=== PATIENT | female | born 1995 | race Caucasian/White ===

== ENCOUNTER 2017-03-14 02:39 | Emergency (ER) | payer OTHER, BC ==
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
[2017-03-14 03:27] VITALS: BP 122/78; PULSE 76; TEMP 98; BMI 32.3
[2017-03-14 04:20] LABS: URINE APPEARANCE CLEAR; URINE BILIRUBIN NEGATIVE (NEGATIVE); URINE BLOOD NEGATIVE (NEGATIVE); URINE COLOR LTYELLOW; URINE GLUCOSE (UA) NEGATIVE (NEGATIVE); URINE KETONE NEGATIVE (NEGATIVE); URINE LEUK ESTERASE NEGATIVE (NEGATIVE); URINE NITRITE NEGATIVE (NEGATIVE); URINE PROTEIN NEGATIVE (NEGATIVE); URINE UROBILINOGEN NEGATIVE mg/dL (0.2-1.0)
== END 2017-03-14 06:04 | disposition home or self-care (01) ==
LOC: JER 02:39
PROC: 2W3KX1Z Immobilization of Left Finger using Splint (ICD-10-PCS; principal; 2017-03-14)
DX: S62.661D Nondisplaced fracture of distal phalanx of left index finger, subsequent encounter for fracture with routine healing (principal); Y92.488 Other paved roadways as the place of occurrence of the external cause; Z48.02 Encounter for removal of sutures; V49.49XD Driver injured in collision with other motor vehicles in traffic accident, subsequent encounter; S01.01XD Laceration without foreign body of scalp, subsequent encounter; S31.114D Laceration without foreign body of abdominal wall, left lower quadrant without penetration into peritoneal cavity, subsequent encounter
CPT/HCPCS: 36415; 73030-TC-LT; 73130-TC-LT; 81003; 84703; 87086; 87491; 87591; 99282-25

== ENCOUNTER 2021-10-06 23:51 | Emergency (ER) | payer OTHER ==
[2021-10-07 00:01] VITALS: BP 106/71; PULSE 77; RESP 20; TEMP 98.7; BMI 25.7
[2021-10-07] MEDS ORDERED: ACETAMINOPHEN 1000 MG/100 ML BAG IVPB ONE (00:16)
[2021-10-07] MEDS ORDERED: LACTATED RINGERS SOLUTION 1,000 ML IV STA (00:16)
[2021-10-07] MEDS ORDERED: ACETAMINOPHEN INJECTION 100 ML IVPB ONE (01:14)
[2021-10-07 01:26] LABS: BASO % 0.4 % (0-2.0); EOS % 0.4 % (0-4.5); HEMATOCRIT 36.3 % (32.4-45.2); HEMOGLOBIN 12.3 GM/dL (10.7-15.3); LYMPH % 19.8 % (8-40); MCHC 33.7 g/dl (32.0-36.0); MEAN PLT VOLUME 8.1 fl (7.5-11.1); NEUT % 72.4 % (42.8-82.8); PLATELET COUNT 250 10^3/uL (134-434); RBC 4.23 M/mm3 (3.60-5.2); RDW 13.6 % (11.6-15.6); WHITE BLOOD COUNT 10.8 K/mm3 (4.0-10.0)
[2021-10-07 01:42] LABS: ALBUMIN 2.9 g/dl (3.4-5.0); BLOOD UREA NITROGEN 5.4 mg/dL (7-18); CALCIUM 8.4 mg/dL (8.5-10.1)
[2021-10-07 01:45] LABS: CREATININE 0.5 mg/dL (0.55-1.3)
[2021-10-07 01:47] LABS: BILIRUBIN,TOTAL 0.3 mg/dL (0.2-1); TOT PROT 7.1 g/dl (6.4-8.2)
[2021-10-07 02:22] LABS: PH,URINE 6.5 (5.0-8.0); URINE APPEARANCE CLEAR; URINE BILIRUBIN NEGATIVE (NEGATIVE); URINE COLOR YELLOW; URINE GLUCOSE (UA) NEGATIVE (NEGATIVE); URINE KETONE NEGATIVE (NEGATIVE); URINE LEUK ESTERASE NEGATIVE (NEGATIVE); URINE NITRITE NEGATIVE (NEGATIVE); URINE PROTEIN NEGATIVE (NEGATIVE)
== END 2021-10-07 03:24 | disposition home or self-care (01) ==
LOC: JER 23:51
PROC: 3E0333Z Introduction of Anti-inflammatory into Peripheral Vein, Percutaneous Approach (ICD-10-PCS; principal; 2021-10-06)
DX: O26.892 Other specified pregnancy related conditions, second trimester (principal); R10.31 Right lower quadrant pain; Z3A.14 14 weeks gestation of pregnancy
CPT/HCPCS: 36415; 76801-TC; 80053; 81003; 83690; 83735; 84100; 84702; 85025; 86850; 86900; 86901; 87086; 93005; 93010; 99285-25

== ENCOUNTER 2022-03-03 21:25 | Inpatient (IN) | payer OTHER ==
[2022-03-03] MEDS ORDERED: AMPICILLIN - 2 GM in SODIUM CHLORIDE 100 ML IVPB ONE (22:42)
[2022-03-03] MEDS ORDERED: ELECTROLYTE-148 SOLN 1,000 ML IV SCH (22:45)
[2022-03-03 23:02] LABS: BASO % 0.2 % (0-2.0); EOS % 0.1 % (0-4.5); HEMATOCRIT 34.9 % (32.4-45.2); HEMOGLOBIN 11.8 GM/dL (10.7-15.3); LYMPH % 15.8 % (8-40); MCH 28.7 pg (25.7-33.7); MCHC 33.8 g/dl (32.0-36.0); MEAN CELL VOLUME 85.1 fl (80-96); MEAN PLT VOLUME 7.2 fl (7.5-11.1); MONO % 7.3 % (3.8-10.2); NEUT % 76.6 % (42.8-82.8); PLATELET COUNT 287 10^3/uL (134-434); RDW 13.3 % (11.6-15.6); WHITE BLOOD COUNT 13.2 K/mm3 (4.0-10.0)
[2022-03-03 23:09] LABS: INR 0.98 (0.83-1.09); PROTHROMBIN TIME (PATIENT) 11.3 SEC (9.7-13.0)
[2022-03-03 23:11] LABS: ACTIVATED PTT 24.5 SECONDS (25.2-36.5)
[2022-03-03 23:21] VITALS: BMI 28.7
[2022-03-03 23:21] LABS: CALCIUM 8.9 mg/dL (8.5-10.1)
[2022-03-03 23:22] LABS: ALBUMIN 2.6 g/dl (3.4-5.0); BLOOD UREA NITROGEN 5.2 mg/dL (7-18)
[2022-03-03 23:25] LABS: CREATININE 0.5 mg/dL (0.55-1.3)
[2022-03-03 23:26] LABS: TOT PROT 6.8 g/dl (6.4-8.2)
[2022-03-03] MEDS ORDERED: AMPICILLIN SODIUM 2 GM VIAL ONE (23:32)
[2022-03-03 23:45] LABS: BILIRUBIN,TOTAL 0.3 mg/dL (0.2-1)
[2022-03-03 23:47] LABS: SYPHILIS W/ RPR CONF NON-REACTIVE (NONREACTIVE)
[2022-03-03 23:48] LABS: HEPATITIS B SURFACE AG MATERN NON-REACTIVE (NONREACTIVE)
[2022-03-04] MEDS ORDERED: OXYTOCIN 30 UNITS in 0.9% NS 30 UNIT/500 ML INFUS.BAG IVPB SCH (00:15)
[2022-03-04 00:16] LABS: HIV INTERPRETATION NEGATIVE (NEGATIVE)
[2022-03-04 00:18] LABS: OPIATES, URI NEGATIVE (NEGATIVE); PHENCYCLIDINE,URINE NEGATIVE (NEGATIVE); URINE BENZODIAZEPINES NEGATIVE (NEGATIVE)
[2022-03-04] MEDS ORDERED: FENTANYL/BUPIVACAINE/NS/PF - PCEA - 50 ML DISP.SYRIN EP ONE (00:33)
[2022-03-04] MEDS ORDERED: BUPIVACAINE HCL/PF 0.25% (2.5MG/ML) 10 ML VIAL ONE ×2 (00:37→07:42)
[2022-03-04 00:40] LABS: COCAINE, UR NEGATIVE (NEGATIVE); METHADONE, UR NEGATIVE (NEGATIVE); URINE AMPHETAMINES NEGATIVE (NEGATIVE); URINE BARBITURATES NEGATIVE (NEGATIVE)
[2022-03-04 01:03] LABS: URINE COLOR YELLOW
[2022-03-04 01:04] LABS: URINE APPEARANCE CLEAR; URINE BILIRUBIN NEGATIVE (NEGATIVE); URINE GLUCOSE (UA) NEGATIVE (NEGATIVE); URINE KETONE NEGATIVE (NEGATIVE); URINE NITRITE NEGATIVE (NEGATIVE); URINE PROTEIN NEGATIVE (NEGATIVE)
[2022-03-04 01:05] LABS: URINE LEUK ESTERASE 1+ (NEGATIVE)
[2022-03-04] MEDS ORDERED: NALOXONE HCL 0.4 MG/ML VIAL IVPUSH PRN (01:05)
[2022-03-04] MEDS ORDERED: FENTANYL/BUPIVACAINE/NS/PF - PCEA - 50 ML DISP.SYRIN EP SCH (01:15)
[2022-03-04] MEDS ORDERED: LIDOCAINE HCL 1% PRESERVATIVE FREE - 30ML VIAL ONE (03:09)
[2022-03-04] MEDS ORDERED: OXYTOCIN 20 UNITS in 0.9% NS 20 UNIT/1,000 ML INFUS.BAG IV ONE (03:10)
[2022-03-04] MEDS ORDERED: AMPICILLIN SODIUM 1 GM VIAL ONE (03:11)
[2022-03-04] MEDS: AMPICILLIN - 1 GM in SODIUM CHLORIDE 100 ML IVPB SCH ×5 (03:15→19:19)
[2022-03-04] MEDS ORDERED: OXYTOCIN 30 UNITS in 0.9% NS 30 UNIT/500 ML INFUS.BAG IVPB ONE (03:21)
[2022-03-04] MEDS ORDERED: METHYLERGONOVINE MALEATE 0.2 MG/1 ML AMP IM PRN (04:46)
[2022-03-04] MEDS ORDERED: BENZOCAINE 28 GM HEMORRHOIDAL OINTMENT TP PRN (04:46)
[2022-03-04] MEDS ORDERED: WITCH HAZEL 50% (TUCKS) 40 PAD/JAR PAD TP PRN (04:46)
[2022-03-04] MEDS ORDERED: BISACODYL 10 MG SUPP.RECT RC PRN (04:46)
[2022-03-04] MEDS ORDERED: BENZOCAINE 20% 57 GM BOTTLE TP PRN (04:46)
[2022-03-04] MEDS ORDERED: ACETAMINOPHEN 325 MG TABLET (FP) PO PRN (04:46)
[2022-03-04] MEDS: IBUPROFEN 600 MG TABLET (FP) PO PRN ×3 (04:51→19:24)
[2022-03-04] MEDS ORDERED: OXYTOCIN 20 UNITS in 0.9% NS 20 UNIT/1,000 ML INFUS.BAG IV SCH (05:00)
[2022-03-04] MEDS: oxyCODONE HCL 5 MG TABLET PO PRN (06:17)
[2022-03-05] MEDS: oxyCODONE HCL 5 MG TABLET PO PRN ×2 (02:34→14:21)
[2022-03-05 08:33] LABS: BASO % 0.3 % (0-2.0); EOS % 1.1 % (0-4.5); HEMATOCRIT 30.3 % (32.4-45.2); HEMOGLOBIN 10.4 GM/dL (10.7-15.3); LYMPH % 30.9 % (8-40); MCH 29.3 pg (25.7-33.7); MCHC 34.4 g/dl (32.0-36.0); MEAN PLT VOLUME 7.7 fl (7.5-11.1); NEUT % 59.7 % (42.8-82.8); PLATELET COUNT 238 10^3/uL (134-434); RBC 3.56 M/mm3 (3.60-5.2); RDW 13.4 % (11.6-15.6); WHITE BLOOD COUNT 9.1 K/mm3 (4.0-10.0)
[2022-03-05] MEDS ORDERED: SENNOSIDES/DOCUSATE COMBO (SENNA PLUS) TABLET (UD) PO PRN (22:00)
[2022-03-05] MEDS: IBUPROFEN 600 MG TABLET (FP) PO PRN (22:28)
[2022-03-06 11:44] VITALS: BP 110/70; PULSE 87; RESP 17; TEMP 97.8
== END 2022-03-06 10:45 | disposition home or self-care (01) | DRG 560 ==
LOC: JLDR 21:25 → J3W 03-04 05:26
PROVIDERS: ADMIT Specialist; ATTEND Specialist
PROC: 10E0XZZ Delivery of Products of Conception, External Approach (ICD-10-PCS; principal; 2022-03-04)
PROC: 0W8NXZZ Division of Female Perineum, External Approach (ICD-10-PCS; 2022-03-04)
DX: O60.14X0 Preterm labor third trimester with preterm delivery third trimester, not applicable or unspecified (principal); Z3A.36 36 weeks gestation of pregnancy; Z37.0 Single live birth
CPT/HCPCS: 36415; 59409; 80053; 80307; 81003; 85025; 85610; 85730; 86762; 86780; 86850; 86900; 86901; 87340; 87389; C9803-CS; U0003; U0005

== ENCOUNTER 2023-08-21 01:18 | Inpatient (IN) | payer OTHER ==
[2023-08-21] MEDS ORDERED: AMPICILLIN NA/SULBACTAM NA 2 GM in SODIUM CHLORIDE 100 ML IVPB ONE (02:15)
[2023-08-21] MEDS: ELECTROLYTE-148 SOLN 1,000 ML IV SCH (02:30)
[2023-08-21 02:45] VITALS: BMI 28.7
[2023-08-21] MEDS ORDERED: AMPICILLIN SODIUM 2 GM VIAL ONE (02:48)
[2023-08-21] MEDS: AMPICILLIN - 2 GM in SODIUM CHLORIDE 100 ML IVPB ONE (02:50)
[2023-08-21 02:51] LABS: BASO % 0.7 % (0-2.0); EOS % 0.2 % (0-4.5); HEMATOCRIT 32.5 % (32.4-45.2); HEMOGLOBIN 10.6 GM/dL (10.7-15.3); LYMPH % 13.4 % (8-40); MCHC 32.7 g/dl (32.0-36.0); MEAN CELL VOLUME 85.4 fl (80-96); MEAN PLT VOLUME 7.6 fl (7.5-11.1); MONO % 6.9 % (3.8-10.2); NEUT % 78.8 % (42.8-82.8); PLATELET COUNT 216 10^3/uL (134-434); RBC 3.81 M/mm3 (3.60-5.2); RDW 16.4 % (11.6-15.6); WHITE BLOOD COUNT 14.3 K/mm3 (4.0-10.0)
[2023-08-21 02:57] LABS: INR 0.94 (0.83-1.09); PROTHROMBIN TIME (PATIENT) 10.6 SEC (9.7-13.0)
[2023-08-21] MEDS ORDERED: OXYTOCIN 20 UNITS in 0.9% NS 20 UNIT/1,000 ML INFUS.BAG IV ONE ×2 (03:00→10:43)
[2023-08-21 03:11] LABS: CALCIUM 8.6 mg/dL (8.5-10.1); POTASSIUM 3.8 mmol/L (3.5-5.1)
[2023-08-21 03:12] LABS: BLOOD UREA NITROGEN 6.7 mg/dL (7-18)
[2023-08-21 03:15] LABS: CREATININE 0.6 mg/dL (0.55-1.3)
[2023-08-21 04:08] LABS: HIV INTERPRETATION NEGATIVE (NEGATIVE)
[2023-08-21 04:42] LABS: COCAINE, UR NEGATIVE (NEGATIVE); METHADONE, UR NEGATIVE (NEGATIVE); OPIATES, URI NEGATIVE (NEGATIVE); URINE BARBITURATES NEGATIVE (NEGATIVE); URINE BENZODIAZEPINES NEGATIVE (NEGATIVE)
[2023-08-21 04:43] LABS: URINE AMPHETAMINES NEGATIVE (NEGATIVE)
[2023-08-21 04:44] LABS: PHENCYCLIDINE,URINE NEGATIVE (NEGATIVE)
[2023-08-21 04:56] LABS: EPI CELLS 22 /uL (0-25.1); HYALINE CASTS 2 /uL (0-3.1); PH,URINE 7.5 (5.0-8.0); URINE APPEARANCE CLEAR; URINE BACTERIA 9 /uL (0-1359); URINE BILIRUBIN NEGATIVE (NEGATIVE); URINE COLOR YELLOW; URINE GLUCOSE (UA) NEGATIVE (NEGATIVE); URINE KETONE NEGATIVE (NEGATIVE); URINE LEUK ESTERASE NEGATIVE (NEGATIVE); URINE NITRITE NEGATIVE (NEGATIVE); URINE PROTEIN NEGATIVE (NEGATIVE); URINE RBC 27 /uL (0-23.9); URINE UROBILINOGEN 0.2 mg/dL (0.2-1.0); URINE WBC 18 /uL (0-25.8)
[2023-08-21] MEDS ORDERED: FENTANYL CITRATE/PF 50 MCG/ML VIAL ONE (05:01)
[2023-08-21] MEDS ORDERED: FENTANYL/BUPIVACAINE/NS/PF - PCEA - 50 ML DISP.SYRIN EP ONE (05:12)
[2023-08-21] MEDS ORDERED: NALOXONE HCL 0.4 MG/ML VIAL IVPUSH PRN (06:06)
[2023-08-21] MEDS ORDERED: FENTANYL/BUPIVACAINE/NS/PF - PCEA - 50 ML DISP.SYRIN EP SCH (06:15)
[2023-08-21] MEDS ORDERED: AMPICILLIN SODIUM 1 GM VIAL ONE (06:49)
[2023-08-21] MEDS: AMPICILLIN - 1 GM in SODIUM CHLORIDE 100 ML IVPB SCH (06:50)
[2023-08-21] MEDS ORDERED: BISACODYL 10 MG SUPP.RECT RC PRN (08:39)
[2023-08-21] MEDS ORDERED: oxyCODONE HCL 5 MG TABLET PO PRN (08:39)
[2023-08-21] MEDS ORDERED: WITCH HAZEL 50% (TUCKS) 40 PAD/JAR PAD TP PRN (08:39)
[2023-08-21] MEDS ORDERED: ACETAMINOPHEN 325 MG TABLET (FP) PO PRN (08:39)
[2023-08-21] MEDS ORDERED: BENZOCAINE 28 GM HEMORRHOIDAL OINTMENT TP PRN (08:39)
[2023-08-21] MEDS ORDERED: METHYLERGONOVINE MALEATE 0.2 MG/1 ML AMP IM PRN (08:39)
[2023-08-21] MEDS ORDERED: IBUPROFEN 600 MG TABLET (FP) PO ONE (10:43)
[2023-08-21] MEDS: IBUPROFEN 600 MG TABLET (FP) PO PRN (10:45)
[2023-08-21] MEDS: OXYTOCIN 20 UNITS in 0.9% NS 20 UNIT/1,000 ML INFUS.BAG IV SCH (10:45)
[2023-08-21 10:55] VITALS: RESP 18
[2023-08-21] MEDS: BENZOCAINE 20% 57 GM BOTTLE TP PRN (16:27)
[2023-08-22 06:36] VITALS: TEMP 98.1
[2023-08-22 07:29] LABS: BASO % 0.3 % (0-2.0); EOS % 0.3 % (0-4.5); HEMATOCRIT 27.5 % (32.4-45.2); HEMOGLOBIN 9.2 GM/dL (10.7-15.3); LYMPH % 12.8 % (8-40); MCH 28.8 pg (25.7-33.7); MCHC 33.6 g/dl (32.0-36.0); MEAN CELL VOLUME 85.8 fl (80-96); MEAN PLT VOLUME 7.9 fl (7.5-11.1); MONO % 8.6 % (3.8-10.2); PLATELET COUNT 187 10^3/uL (134-434); RBC 3.21 M/mm3 (3.60-5.2); RDW 17.5 % (11.6-15.6); WHITE BLOOD COUNT 11.2 K/mm3 (4.0-10.0)
[2023-08-22 10:38] VITALS: BP 100/80; PULSE 80
[2023-08-22] MEDS ORDERED: SENNOSIDES/DOCUSATE COMBO (SENNA PLUS) TABLET (UD) PO PRN (22:00)
== END 2023-08-22 11:05 | disposition home or self-care (01) | DRG 560 ==
LOC: JDEL 01:18 → JLDR 01:55 → J3W 11:00
PROVIDERS: ADMIT Obstetrics & Gynecology; ATTEND Obstetrics & Gynecology
PROC: 10E0XZZ Delivery of Products of Conception, External Approach (ICD-10-PCS; principal; 2023-08-21)
PROC: 0HQ9XZZ Repair Perineum Skin, External Approach (ICD-10-PCS; 2023-08-21)
PROC: 10907ZC Drainage of Amniotic Fluid, Therapeutic from Products of Conception, Via Natural or Artificial Opening (ICD-10-PCS; 2023-08-21)
DX: O70.0 First degree perineal laceration during delivery (principal); Z3A.38 38 weeks gestation of pregnancy; Z37.0 Single live birth
CPT/HCPCS: 36415; 59409; 80048; 80307; 81003; 85025; 85610; 85730; 86780; 86803; 86850; 86900; 86901; 87340; 87389